=== PATIENT | female | born 1980 | race African-American/Black ===

== ENCOUNTER 2017-06-25 06:12 | Day surgery (SDC) | payer BC ==
[~2017-06-25] VITALS: Ht 170.2 cm; Wt 86.2 kg
[~2017-06-25 06:12] MED LIST: MULT-1146 PO
[2017-06-25] MEDS ORDERED: LACTATED RINGERS 1,000 ML IV SCH (06:30)
[2017-06-25] MEDS ORDERED: LIDOCAINE HCL/PF 1% 10 MG/ML 5ML VIAL ONE (07:22)
[2017-06-25] MEDS ORDERED: BACITRACIN 50,000 UNITS/VIAL ONE (07:23)
[2017-06-25] MEDS ORDERED: BUPIVACAINE HCL/PF 0.5% (5MG/ML) 10ML ONE (07:23)
[2017-06-25] MEDS ORDERED: NORMAL SALINE 0.9% 10 ML SYR ONE (07:23)
[2017-06-25] MEDS ORDERED: PROPOFOL 200MG/20ML VIAL IV ONE (07:34)
[2017-06-25] MEDS ORDERED: FENTANYL CITRATE/PF 50MCG/ML 2ML VIAL ONE (07:34)
[2017-06-25] MEDS ORDERED: MIDAZOLAM HCL 2 MG/2 ML VIAL ONE (07:34)
[2017-06-25] MEDS ORDERED: DEXAMETHASONE 4MG/ML 1ML VIAL ONE (07:35)
[2017-06-25] MEDS ORDERED: ONDANSETRON HCL 4MG/2ML VIAL ONE (07:48)
[2017-06-25] MEDS ORDERED: LABETALOL 5MG/ML SYR 20 MG/4 ML SYRINGE IV PRN (08:15)
[2017-06-25] MEDS ORDERED: HYDROMORPHONE HCL/PF 2MG/ML CPJ IV PRN (08:15)
[2017-06-25] MEDS ORDERED: MEPERIDINE HCL/PF 25MG/ML CPJ IV PRN (08:15)
[2017-06-25] MEDS ORDERED: ONDANSETRON HCL 4MG/2ML VIAL IV PRN (08:15)
== END 2017-06-25 10:30 | disposition home or self-care (01) ==
LOC: OR 06:12
PROVIDERS: ATTEND Specialist
DX: L73.2 Hidradenitis suppurativa (principal)
CPT/HCPCS: 11450; 88304; A4216; J1100; J2250; J2405; J3010; J3490; J2704

== ENCOUNTER → 2017-08-26 | Day surgery (SDC) | payer BC ==
[~2017-08-26] VITALS: Ht 170.2 cm; Wt 86.2 kg
[~2017-08-26] MED LIST changes: +BACITRACIN 50,000 UNITS/VIAL ONE; +BUPIVACAINE HCL/PF 0.5% (5MG/ML) 10ML ONE; +FENTANYL CITRATE/PF 50MCG/ML 2ML VIAL ONE; +GLYCOPYRROLATE 0.2 MG/ML 2ML VIAL ONE; +LACTATED RINGERS 1,000 ML IV SCH; +LIDOCAINE HCL/PF 1% 10 MG/ML 5ML VIAL ONE; +METOCLOPRAMIDE HCL 10MG/2ML VIAL ONE; +MIDAZOLAM HCL 2 MG/2 ML VIAL ONE; +NORMAL SALINE 0.9% 10 ML SYR ONE; +ONDANSETRON HCL 4MG/2ML VIAL ONE; +PROPOFOL 200MG/20ML VIAL IV ONE; +SKIN ADHESIVE 0.7 GM EA TOP ONE; +SUCCINYLCHOLINE CHLORIDE 200MG/10ML VIAL IV ONE
[2017-08-26 06:57] LABS: BASOPHILS % 1.2 % (0.0-2.0); EOSINOPHILS % 3.5 % (0.0-5.0); HEMATOCRIT. 41.4 % (36.0-48.0); HEMOGLOBIN. 13.3 g/dL (12.0-16.0); LYMPHOCYTES % 34.4 % (20.0-50.0); MEAN CORPUSCULAR HEMOGLOBIN 23.3 pg (28.0-32.0); MEAN CORPUSCULAR VOLUME 72.5 fL (81.0-99.0); MEAN PLATELET VOLUME 9.1 fl (7.4-10.4); MONOCYTES % 8.6 % (2.0-8.0); NEUTROPHILS % 52.3 % (40.0-76.0); PLATELET 250 x1000/uL (130-400); RED BLOOD CELL COUNT 5.71 mill/uL (4.2-5.4); RED CELL DISTRIBUTION WIDTH 14.9 % (11.6-14.6)
[2017-08-26 07:02] LABS: CHLORIDE 109 mEq/L (98-107)
[2017-08-26 07:04] LABS: CLARITY URINE CLEAR (CLEAR); COLOR URINE YELLOW (YELLOW); KETONES URINE NEGATIVE (NEGATIVE); LEUKOCYTE ESTERASE URINE TRACE (NEGATIVE); NITRITE URINE NEGATIVE (NEGATIVE); OCCULT BLOOD URINE 3+ (NEGATIVE); PROTEIN URINE NEGATIVE (NEGATIVE); SPECIFIC GRAVITY URINE 1.016 (1.005-1.030)
[2017-08-26 07:14] LABS: INR 1.1; PARTIAL THROMBOPLASTIN TIME 25.1 sec (23.4-31.0); PROTHROMBIN TIME 11.5 sec (9.4-11.6)
[2017-08-26 07:23] LABS: UCG SCREEN POSITIVE
== END ==
LOC: OR 06:14
PROVIDERS: ATTEND Specialist
DX: L72.0 Epidermal cyst (principal); Z53.9 Procedure and treatment not carried out, unspecified reason; Z79.01 Long term (current) use of anticoagulants
CPT/HCPCS: 36415; 80048; 81003; 81025; 84702; 85025; 85610; 85730; J3490; J7120; A4216; J0330; J2250; J2405; J2704; J2765; J3010